=== PATIENT | male | born 1980 | race Caucasian/White ===

== ENCOUNTER 2018-08-31 03:47 | Emergency (ER) | payer OTHER ==
[~2018-08-31] VITALS: Ht 182.9 cm; Wt 176.0 kg
[2018-08-31 03:50] VITALS: BP 104/61
--- NOTE | 2018-08-31 03:50 | NUR ---
PT PRESENTS TO ED BIBA FOR ETOH WITH N/V. PT IS ALERT AND ABLE TOA NSER QUESTIONS APPROPRIATLEY WITH SLURRED SPEECH. PT REPORTS DRINKING 1/2 BOTTLE OF CIROC. PT PLACED INTO BED, PENDING MD POZO. PM--DM
[2018-08-31] MEDS ORDERED: NACL 0.9% 1,000 ML IV ONE (03:55)
[2018-08-31] MEDS ORDERED: ONDANSETRON 4 MG/2 ML VIAL IVP ONE (04:00)
--- NOTE | 2018-08-31 04:01 | NUR ---
EKG PERFORMED AT BEDSIDE. PT COVERED IN GOWN DURING PROCEDURE
[2018-08-31 04:18] LABS: BASOPHILS % (AUTO) 0.6 % (0.0-2.0); HEMATOCRIT 47.9 % (36-52); HEMOGLOBIN 15.6 g/dL (12.0-18.0); LYMPHOCYTES # (AUTO) 1.1 K/uL (2.0-11.5); LYMPHOCYTES % (AUTO) 22.1 % (20.5-51.1); MEAN CORPUSCULAR HEMOGLOBIN 29 pg (27-31); MEAN CORPUSCULAR HGB CONC 33 g/dL (33-37); MEAN CORPUSCULAR VOLUME 88.7 fL (80-94); MONOCYTES # (AUTO) 0.3 K/uL (0.8-1.0); MONOCYTES % (AUTO) 6.6 % (1.7-9.3); NEUTROPHILS # (AUTO) 3.4 K/uL (1.8-7.7); NEUTROPHILS % (AUTO) 69.7 % (42.2-75.2); PLATELET COUNT (AUTO) 213 K/uL (140-450); RED CELL DISTRIBUTION WIDTH 13.6 % (11.6-13.7); WHITE BLOOD COUNT (AUTO) 4.9 K/uL (4.8-10.8)
--- NOTE | 2018-08-31 04:20 | NUR ---
FAMILY AT BEDSIDE
[2018-08-31 04:35] LABS: ANION GAP 14.6 (8-16); CARBON DIOXIDE 24.8 mmol/L (21-32); CHLORIDE 105 mmol/L (98-107); CREATININE 0.8 mg/dL (0.7-1.3); GFR ARICAN-AMERICAN 138 mL/min (>90); GLUCOSE 327 mg/dL (74-106); POTASSIUM 3.4 mmol/L (3.5-5.1); SODIUM SERUM 141 mmol/L (136-145); UREA NITROGEN, BLOOD 11 mg/dL (7-18)
[2018-08-31 04:40] LABS: ACETAMINOPHEN < 0.5 ug/ml (10-30); ALBUMIN 3.3 g/dL (3.4-5.0); ASPARTATE AMINOTRANSFERASE 16 U/L (15-37); SALICYLATE < 2.8 mg/dL (2.8-20.0); TOTAL BILIRUBIN 0.2 mg/dL (0.0-1.0)
[2018-08-31 05:03] VITALS: BP 104/61
== END 2018-08-31 05:03 | disposition home or self-care (01) ==
LOC: MED 03:47
DX: F10.129 Alcohol abuse with intoxication, unspecified (principal); R73.9 Hyperglycemia, unspecified; R11.2 Nausea with vomiting, unspecified; Y90.7 Blood alcohol level of 200-239 mg/100 ml
CPT/HCPCS: 36415; 80053; 85025; 93005; 96361; 96374; 99284; G0480; G0482; J2405; J7030